=== PATIENT | male | born 1990 | race Caucasian/White ===

== ENCOUNTER 2018-07-07 08:14 | Emergency (ER) | payer SELFPAY ==
[2018-07-07] MEDS ORDERED: ONDANSETRON 4 MG/2 ML VIAL ONE (08:39)
[2018-07-07] MEDS ORDERED: NA CHLORIDE 0.9% 1,000 ML ONE (08:39)
[2018-07-07 09:11] LABS: Absolute Monocytes 0.4 K/uL (0.1-1.3); Absolute Neutrophil 6.3 K/uL (1.8-8.0); Basophils % 0.3 % (0-1.3); Eosinophils % 0.1 % (0-4.4); Hematocrit 45.6 % (39.6-49.0); Lymphocytes % 22.8 % (15.3-44.8); MCV 93.1 fL (80-100); MPV 8.7 fL (7.6-11.3); Monocytes % 4.7 % (3.3-12.3)
[2018-07-07 09:12] LABS: ALT/SGPT 22 U/L (12-78); AST/SGOT 11 U/L (15-37); Alkaline Phosphatase 71 U/L (45-117); BUN Blood Urea Nitrogen 11 mg/dL (7-18); Bicarbonate 29 mmol/L (21-32); Bilirubin Direct 0.2 mg/dL (0-0.2); Bilirubin Total 0.9 mg/dL (0.2-1.0); Glucose Level 99 mg/dL (74-106); Lipase 92 U/L (73-393); Potassium 4.3 mmol/L (3.5-5.1); Protein, Total 7.3 g/dL (6.4-8.2); Sodium Level 141 mmol/L (136-145)
--- NOTE | 2018-07-07 09:41 | RAD REPORT ---
EXAM DESCRIPTION: CT - Abdomen Pelvis W Contrast - 07/07/2018 9:33 am CLINICAL HISTORY: Vomiting, diarrhea, right upper quadrant pain COMPARISON: None. TECHNIQUE: Biphasic, helical CT imaging of the abdomen and pelvis was performed following 100 ml non -ionic IV contrast. Oral contrast was given. All CT scans are performed using dose optimization technique as appropriate and may include automated exposure control or mA/KV adjustment according to patient size. FINDINGS: No suspicious findings in the lung bases. The liver, spleen, and pancreas show no suspicious findings. Gallbladder and biliary tree are also wi thout suspicious finding. Symmetric renal function is seen with no hydronephrosis or suspicious renal mass. No dilated bowel loops or bowel wall thickening. No appendicitis. No free air, free fluid or inflamma tory stranding. No hernia, mass or bulky lymphadenopathy. The urinary bladder is without significant finding. No adrenal abnormality. No suspicious bony findings. IMPRESSION: Contrast enhanced CT abdomen and pelvis showing no significant or suspicious finding.
--- NOTE | 2018-07-07 09:46 | ER ---
Nurse's Notes [facility] Name: Silvano Rolon Age: 27 yrs Sex: Male : 1990 Arrival Date: 07/07/2018 Time: 08:17 Bed 19 Private MD: Diagnosis: Vomiting;Diarrhea, unspecified;Viral gastroenteritis Presentation: 07/07 08:27 Presenting complaint: Patient states: got over heated at work yesterday, then this iw morning he vomited X6 and had diarrhea, also has RUQ pain described as cramping/sharp pain. Transition of care: patient was not received from another setting of care. Onset of symptoms was July 07, 2018. Risk Assessment: Do you want to hurt yourself or someone else? Patient reports no desire to harm self or others. Initial Sepsis Screen: Does the patient meet any 2 criteria? No. Patient's initial sepsis screen is negative. Does the patient have a suspected source of infection? No. Patient's initial sepsis screen is negative. Care prior to arrival: None. 08:27 Method Of Arrival: Ambulatory 08:27 Acuity: BRANDY 3 iw Historical: - Allergies: 08:29 NKA; iw - Home Meds: 08:29 None [Active]; iw - PMHx: 08:29 None; iw - PSHx: 08:29 None; iw - Immunization history:: Adult Immunizations up to date. - Social history:: Smoking status: Patient uses tobacco products, smokes one-half pack cigarettes per day. - Ebola Screening: : Patient denies travel to an Ebola-affected area in the 21 days before illness onset. - Family history:: not pertinent. - Hospitalizations: : No recent hospitalization is reported. Screenin:27 Abuse screen: Denies threats or abuse. Nutritional screening: No deficits noted. tw2 Tuberculosis screening: No symptoms or risk factors identified. Fall Risk None identified. Assessment: 08:47 General: Appears in no apparent distress. slender, Behavior is calm, cooperative, tw2 appropriate for age. Pain: Complains of pain in abdomen. Neuro: Level of Consciousness is awake, alert, obeys commands, Oriented to person, place, time, situation. Cardiovascular: Denies chest pain, shortness of breath, Heart tones S1 S2 Patient's skin is warm and dry. Respiratory: Airway is patent Respiratory effort is even, unlabored, Respiratory pattern is regular, symmetrical, Breath sounds are clear bilaterally. GI: Abdomen is flat, non-distended, Bowel sounds present X 4 quads. Reports lower abdominal pain, upper abdominal pain, diarrhea, nausea, vomiting. : No signs and/or symptoms were reported regarding the genitourinary system. EENT: No signs and/or symptoms were reported regarding the EENT system. Derm: No signs and/or symptoms reported regarding the dermatologic system. Skin is intact, is healthy with good turgor, Skin temperature is warm. Musculoskeletal: Circulation, motion, and sensation intact. Capillary refill < 3 seconds, Range of motion: intact in all extremities. 09:19 Reassessment: Patient appears in no apparent distress at this time. No changes from tw2 previously documented assessment. Patient and/or family updated on plan of care and expected duration. Pain level reassessed. Patient is alert, oriented x 3, equal unlabored respirations, skin warm/dry/pink. Patient states feeling better. Patient states symptoms have improved. 10:07 Reassessment: Patient appears in no apparent distress at this time. No changes from tw2 previously documented assessment. Patient and/or family updated on plan of care and expected duration. Pain level reassessed. Patient is alert, oriented x 3, equal unlabored respirations, skin warm/dry/pink. Patient states feeling better. Patient states symptoms have improved. Vital Signs: 08:29 BP 125 / 79; Pulse 53; Resp 16; Pulse Ox 98% on R/A; Weight 68.04 kg; Height 5 ft. 8 iw in. (172.72 cm); Pain 5/10; 09:19 BP 127 / 74; Pulse 52; Resp 17; Pulse Ox 100% on R/A; tw2 09:21 Temp 98(O); tw2 10:07 BP 125 / 77; Pulse 51; Resp 17; Pulse Ox 99% on R/A; tw2 08:29 Body Mass Index 22.81 (68.04 kg, 172.72 cm) iw ED Course: 08:17 Patient arrived in ED. mr 08:24 Connor Hwang MD is Attending Physician. rn 08:27 Gilda Almaraz RN is Primary Nurse. tw2 08:28 Bed in low position. Call light in reach. Adult w/ patient. Pulse ox on. NIBP on. tw2 08:29 Triage completed. iw 08:29 Arm band placed on. iw 08:40 Inserted saline lock: 20 gauge in right forearm, using aseptic technique. Blood tw2 collected. 09:34 CT Abd/Pelvis - W/Contrast In Process Unspecified. EDMS 10:06 No provider procedures requiring assistance completed. IV discontinued, intact, tw2 bleeding controlled, No redness/swelling at site. Pressure dressing applied. Administered Medications: 08:45 Drug: Zofran 4 mg Route: IVP; Site: right forearm; tw2 09:28 Follow up: Response: No adverse reaction; Nausea is decreased tw2 08:46 Drug: NS 0.9% 1000 ml Route: IV; Rate: 1000 ml; Site: right forearm; tw2 09:27 Follow up: Response: No adverse reaction; IV Status: Completed infusion; IV Intake: tw2 1000ml Intake: 09:27 IV: 1000ml; Total: 1000ml. tw2 Outcome: 09:46 Discharge ordered by MD. rn 10:07 Discharged to home ambulatory, with friend. tw2 10:07 Condition: stable 10:07 Discharge instructions given to patient, friend, Instructed on discharge instructions, follow up and referral plans. medication usage, Demonstrated understanding of instructions, follow-up care, medications, Prescriptions given X 1. 10:08 Patient left the ED. tw2 Signatures: Dispatcher [employer] EDOR Kathy Sinha Irene, RN ORA iw Connor Hwang MD MD rn Wise, Tara, RN RN tw2 Corrections: (The following items were deleted from the chart) 10:08 09:19 Reassessment: Patient appears in no apparent distress at this time. No changes tw2 from previously documented assessment. Patient and/or family updated on plan of care and expected duration. Pain level reassessed. Patient is alert, oriented x 3, equal unlabored respirations, skin warm/dry/pink. tw2 10:08 10:07 Reassessment: Patient appears in no apparent distress at this time. No changes tw2 from previously documented assessment. Patient and/or family updated on plan of care and expected duration. Pain level reassessed. Patient is alert, oriented x 3, equal unlabored respirations, skin warm/dry/pink. tw2
--- NOTE | 2018-07-07 09:46 | EDPHYS ---
Physician Documentation [facility] Name: Silvano Rolon Age: 27 yrs Sex: Male : 1990 Arrival Date: 07/07/2018 Time: 08:17 Bed 19 Private MD: ED Physician Connor Hwang HPI: 07/07 08:54 This 27 yrs old Male presents to ER via Ambulatory with complaints of rn Vomiting, Abdominal Pain. 08:54 The patient presents to the emergency department with nausea, vomiting, diarrhea, rn abdominal pain, of the umbilical area and right lower quadrant. Onset: The symptoms/episode began/occurred yesterday. Possible causes: unknown. Associated signs and symptoms: Pertinent positives: abdominal pain, diarrhea, nausea, vomiting, Pertinent negatives: fever, GI bleeding. Severity of symptoms: At their worst the symptoms were moderate in the emergency department the symptoms are unchanged. The patient has not experienced similar symptoms in the past. The patient has not recently seen a physician. Reports co-worker with similar symptoms this past week, thought got overheated yesterday, hydrated with water and pedialyte, woke up worse today with abd cramping, nausea/vomiting/diarrhea.. Historical: - Allergies: 08:29 NKA; iw - Home Meds: 08:29 None [Active]; iw - PMHx: 08:29 None; iw - PSHx: 08:29 None; iw - Immunization history:: Adult Immunizations up to date. - Social history:: Smoking status: Patient uses tobacco products, smokes one-half pack cigarettes per day. - Ebola Screening: : Patient denies travel to an Ebola-affected area in the 21 days before illness onset. - Family history:: not pertinent. - Hospitalizations: : No recent hospitalization is reported. ROS: 08:54 Constitutional: Negative for fever, chills, and weight loss, Eyes: Negative for injury, rn pain, redness, and discharge, Neck: Negative for injury, pain, and swelling, Cardiovascular: Negative for chest pain, palpitations, and edema, Respiratory: Negative for shortness of breath, cough, wheezing, and pleuritic chest pain, Abdomen/GI: + abd pain/nausea/vomiting/diarrhea MS/Extremity: Negative for injury and deformity, Skin: Negative for injury, rash, and discoloration, Neuro: Negative for headache, weakness, numbness, tingling, and seizure. Exam: 08:54 Constitutional: This is a well developed, well nourished patient who is awake, alert, rn and in no acute distress. Head/Face: Normocephalic, atraumatic. Eyes: Pupils equal round and reactive to light, extra-ocular motions intact. Lids and lashes normal. Conjunctiva and sclera are non-icteric and not injected. Cornea within normal limits. Periorbital areas with no swelling, redness, or edema. ENT: dry MM Cardiovascular: Regular rate and rhythm with a normal S1 and S2. No gallops, murmurs, or rubs. Normal PMI, no JVD. No pulse deficits. Respiratory: Lungs have equal breath sounds bilaterally, clear to auscultation and percussion. No rales, rhonchi or wheezes noted. No increased work of breathing, no retractions or nasal flaring. Abdomen/GI: soft, + right sided abd tenderness and periumbilical tenderness, no rebound MS/ Extremity: Pulses equal, no cyanosis. Neurovascular intact. Full, normal range of motion. Equal circumference. Neuro: Awake and alert, GCS 15, oriented to person, place, time, and situation. Cranial nerves II-XII grossly intact. Motor strength 5/5 in all extremities. Sensory grossly intact. Vital Signs: 08:29 BP 125 / 79; Pulse 53; Resp 16; Pulse Ox 98% on R/A; Weight 68.04 kg; Height 5 ft. 8 iw in. (172.72 cm); Pain 5/10; 09:19 BP 127 / 74; Pulse 52; Resp 17; Pulse Ox 100% on R/A; tw2 09:21 Temp 98(O); tw2 10:07 BP 125 / 77; Pulse 51; Resp 17; Pulse Ox 99% on R/A; tw2 08:29 Body Mass Index 22.81 (68.04 kg, 172.72 cm) iw MDM: 08:24 Patient medically screened. rn 09:44 Differential diagnosis: Nonspecific abd pain, gastritis, cholecystitis, pancreatitis, rn appendicitis, diverticulitis, viral gastroenteritis, gastroenteritis. Data reviewed: vital signs, nurses notes, lab test result(s), radiologic studies, CT scan, and as a result, I will discharge patient. Counseling: I had a detailed discussion with the patient and/or guardian regarding: the historical points, exam findings, and any diagnostic results supporting the discharge/admit diagnosis, lab results, radiology results, the need for outpatient follow up, to return to the emergency department if symptoms worsen or persist or if there are any questions or concerns that arise at home. Response to treatment: the patient's symptoms have markedly improved after treatment, and as a result, I will discharge patient. Special discussion: Based on the patient's Hx, exam, and Dx evaluation, there is no indication for emergent surgery or inpatient Tx. It is understood by the patient/guardian that if the Sx's persist or worsen they need to return immediately for re-evaluation. I discussed with the patient/guardian in detail that at this point there is no indication for admission to the hospital. It is understood, however, that if the symptoms persist or worsen the patient needs to return immediately for re-evaluation. 07/07 08:32 Order name: Basic Metabolic Panel; Complete Time: 09:17 rn 07/07 08:32 Order name: CBC with Diff; Complete Time: 09:17 rn 07/07 08:32 Order name: Hepatic Function; Complete Time: 09:17 rn 07/07 08:32 Order name: Lipase; Complete Time: 09:17 rn 07/07 08:32 Order name: CT Abd/Pelvis - W/Contrast; Complete Time: 09:44 rn 07/07 08:32 Order name: IV Saline Lock; Complete Time: 08:46 rn 07/07 08:32 Order name: Labs collected and sent; Complete Time: 08:46 rn Administered Medications: 08:45 Drug: Zofran 4 mg Route: IVP; Site: right forearm; tw2 09:28 Follow up: Response: No adverse reaction; Nausea is decreased tw2 08:46 Drug: NS 0.9% 1000 ml Route: IV; Rate: 1000 ml; Site: right forearm; tw2 09:27 Follow up: Response: No adverse reaction; IV Status: Completed infusion; IV Intake: tw2 1000ml Disposition: 07/07/18 09:46 Discharged to Home. Impression: Vomiting, Diarrhea, unspecified, Viral gastroenteritis. - Condition is Stable. - Discharge Instructions: Diarrhea, Adult, Nausea and Vomiting, Adult, Viral Gastroenteritis, Adult. - Prescriptions for Zofran ODT 4 mg Oral tablet,disintegrating - place 1 tablet by TRANSLINGUAL route every 8 hours As needed; 20 tablet. - Work release form, Medication Reconciliation Form, Thank You Letter, Antibiotic Education, Prescription Opioid Use form. - Follow up: Private Physician; When: As needed; Reason: Recheck today's complaints, Re-evaluation by your physician. - Problem is new. - Symptoms have improved. Signatures: Dispatcher [employer] Leslee Brothers RN RN Connor Hwang MD MD rn Wise, Tara, RN RN tw2 Corrections: (The following items were deleted from the chart) 10:08 09:46 07/07/2018 09:46 Discharged to Home. Impression: Vomiting; Diarrhea, unspecified; tw2 Viral gastroenteritis. Condition is Stable. Forms are Medication Reconciliation Form, Thank You Letter, Antibiotic Education, Prescription Opioid Use. Follow up: Private Physician; When: As needed; Reason: Recheck today's complaints, Re-evaluation by your physician. Problem is new. Symptoms have improved. rn
== END 2018-07-07 10:08 | disposition home or self-care (01) ==
LOC: ER 08:14
DX: A08.4 Viral intestinal infection, unspecified (principal); R19.7 Diarrhea, unspecified; F17.210 Nicotine dependence, cigarettes, uncomplicated
CPT/HCPCS: 36415; 74177; 80048; 80076; 83690; 85025; 96361; 96374; 99284; J2405; J7030; Q9967

== ENCOUNTER 2021-05-15 12:16 | Emergency (ER) | payer SELFPAY ==
--- NOTE | 2021-05-15 13:45 | EDPHYS ---
Physician Documentation [facility] Name: Silvano Rolon Age: 30 yrs Sex: Male : 1990 Arrival Date: 05/15/2021 Time: 12:18 Bed DX4 Private MD: ED Physician Carlos Alberto Warren HPI: 05/15 13:19 This 30 yrs old Male presents to ER via Ambulatory with complaints of Arm kdr Pain, Shoulder Pain. 13:19 The patient or guardian complains of pain, that is acute. The complaints affect the kdr posterior aspect of right shoulder, right tricep and palmar aspect of right forearm. Context: The problem was sustained at home, resulted from lifting or pulling, a heavy object, playing sports, wrestling with his brother two weeks ago. had had numbness in his hand since but the pain is getting progressively worse.. Onset: The symptoms/episode began/occurred suddenly, 2 week(s) ago. Treatment prior to arrival includes: over the counter medications, NSAIDS. Modifying factors: The symptoms are alleviated by nothing. the symptoms are aggravated by movement, lifting weight, bending arm. Associated signs and symptoms: The patient has no apparent associated signs or symptoms. Severity of symptoms: At their worst the symptoms were mild, just prior to arrival, in the emergency department the symptoms are unchanged. The patient has not experienced similar symptoms in the past. The patient has not recently seen a physician. Historical: - Allergies: 12:53 NKA; jl7 - Home Meds: 12:53 None [Active]; jl7 - PMHx: 12:53 None; jl7 - PSHx: 12:53 None; jl7 - Immunization history:: Adult Immunizations unknown. - Social history:: Smoking status: Patient reports the use of cigarette tobacco products, smokes one-half pack cigarettes per day. ROS: 13:19 Constitutional: Negative for fever, chills, and weight loss, Eyes: Negative for injury, kdr pain, redness, and discharge, Neck: Negative for injury, pain, and swelling, Cardiovascular: Negative for chest pain, palpitations, and edema, Respiratory: Negative for shortness of breath, cough, wheezing, and pleuritic chest pain, Abdomen/GI: Negative for abdominal pain, nausea, vomiting, diarrhea, and constipation, Back: Negative for injury and pain, : Negative for injury, bleeding, discharge, and swelling, Skin: Negative for injury, rash, and discoloration, Neuro: Negative for headache, weakness, numbness, tingling, and seizure activity. 13:19 MS/extremity: Positive for pain, tingling, of the right hand and right arm. Exam: 19:23 Constitutional: This is a well developed, well nourished patient who is awake, alert, kdr and in no acute distress. Head/Face: Normocephalic, atraumatic. Eyes: Pupils equal round and reactive to light, extra-ocular motions intact. Lids and lashes normal. Conjunctiva and sclera are non-icteric and not injected. Cornea within normal limits. Periorbital areas with no swelling, redness, or edema. 19:23 Musculoskeletal/extremity: Extremities: all appear grossly normal, with no appreciated pain with palpation, grossly normal except: noted in the right subscapular area: Vital Signs: 12:51 BP 127 / 90; Pulse 78; Resp 15; Temp 97.8; Pulse Ox 99% on R/A; Weight 63.5 kg; Height jl7 5 ft. 8 in. (172.72 cm); Pain 7/10; 12:51 Body Mass Index 21.29 (63.50 kg, 172.72 cm) jl7 MDM: 13:44 Patient medically screened. kdr 19:23 Data reviewed: vital signs. Counseling: I had a detailed discussion with the patient kdr and/or guardian regarding: the historical points, exam findings, and any diagnostic results supporting the discharge/admit diagnosis, the need for outpatient follow up. Administered Medications: 13:39 Drug: Ibuprofen 800 mg Route: PO; jl7 14:01 Follow up: Response: No adverse reaction jl7 13:39 Drug: predniSONE 60 mg Route: PO; jl7 14:01 Follow up: Response: No adverse reaction jl7 13:39 Drug: Pepcid (famotidine) 20 mg Route: PO; jl7 14:01 Follow up: Response: No adverse reaction jl7 Disposition Summary: 05/15/21 13:44 Discharge Ordered Location: Home kdr Problem: an ongoing problem kdr Symptoms: have improved kdr Condition: Stable kdr Diagnosis - Unspecified mononeuropathy of right upper limb kdr - Radiculopathy, cervical region kdr Followup: kdr - With: Private Physician - When: 2 - 3 days - Reason: If symptoms return, Further diagnostic work-up, Recheck today's complaints, Continuance of care, Re-evaluation by your physician Discharge Instructions: - Discharge Summary Sheet kdr - Cervical Radiculopathy kdr - Neuropathic Pain kdr - Pinched Nerve kdr Forms: - Medication Reconciliation Form kdr - Thank You Letter kdr Prescriptions: - Ibuprofen 600 mg Oral Tablet - take 1 tablet by ORAL route every 6 hours As needed take with food; 30 tablet; kdr Refills: 0, Product Selection Permitted - Medrol (Prabhjot) 4 mg Oral Tablets, Dose Pack - take 1 tablet by ORAL route as directed - follow package instructions; 1 kdr packet; Refills: 0, Product Selection Permitted - Pepcid 20 mg Oral Tablet - take 1 tablet by ORAL route once daily for 10 days; 10 tablet; Refills: 0, kdr Product Selection Permitted Signatures: Carlos Alberto Warren MD MD kdr Lashawn Oviedo RN RN jl7
--- NOTE | 2021-05-15 13:45 | ER ---
Nurse's Notes [facility] Name: Silvano Rolon Age: 30 yrs Sex: Male : 1990 Arrival Date: 05/15/2021 Time: 12:18 Bed DX4 Private MD: Diagnosis: Unspecified mononeuropathy of right upper limb;Radiculopathy, cervical region Presentation: 05/15 12:51 Chief complaint: Patient states: Wrestling with my brother 2.5 weeks ago and since then jl7 my right arm is hurting and my fingers feel numb. Coronavirus screen: Client denies travel out of the [place] in the last 14 days. At this time, the client does not indicate any symptoms associated with coronavirus-19. Ebola Screen: No symptoms or risks identified at this time. Initial Sepsis Screen: Does the patient meet any 2 criteria? No. Patient's initial sepsis screen is negative. Does the patient have a suspected source of infection? No. Patient's initial sepsis screen is negative. Risk Assessment: Do you want to hurt yourself or someone else? Patient reports no desire to harm self or others. Onset of symptoms was April 28, 2021. Care prior to arrival: None. 12:51 Method Of Arrival: Ambulatory 7 12:51 Acuity: BRANDY 4 jl7 Triage Assessment: 12:51 General: Appears in no apparent distress. uncomfortable, Behavior is calm, cooperative, jl7 appropriate for age. Pain: Complains of pain in posterior aspect of right shoulder Pain currently is 7 out of 10 on a pain scale. Neuro: Level of Consciousness is awake, alert, obeys commands, Oriented to person, place, time, situation. Cardiovascular: Patient's skin is warm and dry. Respiratory: Airway is patent Respiratory effort is even, unlabored, Respiratory pattern is regular, symmetrical. Derm: Skin is pink, warm \T\ dry. Musculoskeletal: Range of motion: intact in all extremities, Swelling absent. Historical: - Allergies: 12:53 NKA; jl7 - Home Meds: 12:53 None [Active]; jl7 - PMHx: 12:53 None; jl7 - PSHx: 12:53 None; jl7 - Immunization history:: Adult Immunizations unknown. - Social history:: Smoking status: Patient reports the use of cigarette tobacco products, smokes one-half pack cigarettes per day. Screenin:12 Abuse screen: Denies threats or abuse. Denies injuries from another. Nutritional ss screening: No deficits noted. Tuberculosis screening: Never had TB. Fall Risk None identified. Assessment: 12:51 General: See triage assessment. jl7 13:40 Reassessment: Patient appears in no apparent distress at this time. No changes from jl7 previously documented assessment. Patient and/or family updated on plan of care and expected duration. Pain level reassessed. Patient is alert, oriented x 3, equal unlabored respirations, skin warm/dry/pink. Vital Signs: 12:51 BP 127 / 90; Pulse 78; Resp 15; Temp 97.8; Pulse Ox 99% on R/A; Weight 63.5 kg; Height jl7 5 ft. 8 in. (172.72 cm); Pain 7/10; 12:51 Body Mass Index 21.29 (63.50 kg, 172.72 cm) jl7 ED Course: 12:18 Patient arrived in ED. am2 12:53 Triage completed. jl7 12:53 Arm band placed on right wrist. Patient placed in waiting room, Patient notified of jl7 wait time. 13:12 Carlos Alberto Warren MD is Attending Physician. kdr 13:12 Patient has correct armband on for positive identification. Bed in low position. Call ss light in reach. 13:39 Lashawn Oviedo, RN is Primary Nurse. jl7 13:40 No provider procedures requiring assistance completed. Patient did not have IV access jl7 during this emergency room visit. Administered Medications: 13:39 Drug: Ibuprofen 800 mg Route: PO; jl7 14:01 Follow up: Response: No adverse reaction jl7 13:39 Drug: predniSONE 60 mg Route: PO; jl7 14:01 Follow up: Response: No adverse reaction jl7 13:39 Drug: Pepcid (famotidine) 20 mg Route: PO; jl7 14:01 Follow up: Response: No adverse reaction jl7 Outcome: 13:44 Discharge ordered by . kdr 13:59 Discharged to home ambulatory. jl7 13:59 Condition: stable 13:59 Discharge instructions given to patient, family, Instructed on discharge instructions, follow up and referral plans. medication usage, Demonstrated understanding of instructions, follow-up care, medications, Prescriptions given X 3. 14:00 Patient left the ED. jl7 Signatures: Carlos Alberto Warren MD MD kdr Smirch, Shelby, RN RN Lashawn Jeffries RN RN jl7 Ida Youngblood
[2021-05-15] MEDS ORDERED: predniSONE 20 MG TAB ONE (13:56)
[2021-05-15] MEDS ORDERED: IBUPROFEN 400 MG TAB ONE (13:56)
[2021-05-15] MEDS ORDERED: FAMOTIDINE 20 MG TAB ONE (13:57)
[2021-05-15 14:06] VITALS: BP 127/90; TEMP 97.8; O2SAT 99
== END 2021-05-15 14:00 | disposition home or self-care (01) ==
LOC: ER 12:16
DX: M54.12 Radiculopathy, cervical region (principal); F17.210 Nicotine dependence, cigarettes, uncomplicated
CPT/HCPCS: J7512

== ENCOUNTER 2022-03-27 15:14 | Emergency (ER) | payer SELFPAY ==
[2022-03-27 15:52] LABS: Absolute Lymphocytes (CBC) 1.9 K/uL (0.7-4.9); Hematocrit 41.3 % (39.6-49.0); Lymphocytes % 23.3 % (15.3-44.8); MPV 7.3 fL (7.6-11.3); RBC Red Blood Cell Count 4.48 M/uL (4.33-5.43)
[2022-03-27 16:02] LABS: Potassium 3.8 mmol/L (3.5-5.1)
--- NOTE | 2022-03-27 16:09 | RAD REPORT ---
EXAM DESCRIPTION: [place] Single View03/27/2022 4:01 pm CLINICAL HISTORY: Chest pain COMPARISON: none FINDINGS: The lungs appear clear of acute infiltrate. The heart is normal size IMPRESSION: No acute abnormalities displayed
--- NOTE | 2022-03-27 16:30 | ER ---
Nurse's Notes [facility] Name: Silvano Rolon Age: 31 yrs Sex: Male : 1990 Arrival Date: 03/27/2022 Time: 15:16 Bed 8 Private MD: Diagnosis: Chest pain, unspecified Presentation: 03/27 15:17 Chief complaint: Chief complaint: Patient states: l side chest pain after running from [facility] police. reports no drug use. 15:17 Chief complaint:. Coronavirus screen: Vaccine status: Patient reports being [facility] unvaccinated. Client denies travel out of the [place] in the last 14 days. Ebola Screen: Patient negative for fever greater than or equal to 101.5 degrees Fahrenheit, and additional compatible Ebola Virus Disease symptoms Patient denies exposure to infectious person. Patient denies travel to an Ebola-affected area in the 21 days before illness onset. Initial Sepsis Screen: Does the patient meet any 2 criteria? No. Patient's initial sepsis screen is negative. Does the patient have a suspected source of infection? No. Patient's initial sepsis screen is negative. Risk Assessment: Do you want to hurt yourself or someone else? Patient reports no desire to harm self or others. Onset of symptoms was March 27, 2022. 15:17 Method Of Arrival: EMS: [facility] 15:17 Acuity: BRANDY 3 [facility] Triage Assessment: 15:21 General: Appears in no apparent distress. Behavior is calm, cooperative. Pain: [facility] Complains of pain in anterior aspect of left upper chest and left breast Pain currently is 6 out of 10 on a pain scale. Quality of pain is described as pressure, sharp, Pain began suddenly, Is continuous, Aggravated by increased activity, repositioning, palpation. Cardiovascular: Reports chest pain, Capillary refill < 3 seconds JVD is absent Pulses are all present. Rhythm is sinus rhythm. Historical: - Allergies: 15:20 NKA; [facility] - Home Meds: 15:20 None [Active]; [facility] - Immunization history:: Adult Immunizations unknown. - Social history:: Smoking status: Patient denies any tobacco usage or history of. Screenin:23 Abuse screen: Denies threats or abuse. Nutritional screening: No deficits noted. [facility] Tuberculosis screening: No symptoms or risk factors identified. Fall Risk None identified. Assessment: 15:22 General: Appears in no apparent distress. Behavior is calm, cooperative, see triage jh6 note. Neuro: No deficits noted. Cardiovascular: Reports chest pain. Respiratory: No deficits noted. GI: No deficits noted. 16:30 Reassessment: No changes from previously documented assessment. Patient is alert, jh6 oriented x 3, equal unlabored respirations, skin warm/dry/pink. 16:30 Pain: Complains of pain in anterior aspect of left upper chest and left breast Pain jh6 currently is 4 out of 10 on a pain scale. Quality of pain is described as sharp, Pain began suddenly. Vital Signs: 15:17 BP 133 / 99; Pulse 108; Resp 20; Pulse Ox 98% ; Weight 72.57 kg; Height 5 ft. 8 in. jh6 (172.72 cm); Pain 6/10; 16:30 BP 142 / 89; Pulse 93; Resp 18; Temp 98.4; Pulse Ox 100% ; jh6 15:17 Body Mass Index 24.33 (72.57 kg, 172.72 cm) 6 ED Course: 15:16 Patient arrived in ED. jh6 15:16 Janina Wise, ORA is Primary Nurse. jh6 15:18 Franco Anaya PA is PHCP. cp 15:18 Lei Bey DO is Attending Physician. cp 15:20 Triage completed. jh6 15:22 Arm band placed on left wrist. Patient placed in an exam room, on a stretcher, on 6 rn cardiac, on pulse oximetry. 15:23 Bed in low position. Call light in reach. Side rails up X 1. Adult w/ patient. jh6 15:47 EKG done, by ED staff, reviewed by Lei Bey DO. Initial lab(s) drawn, by ED staff, mh5 sent to lab. Inserted. 16:03 XRAY Chest (1 view) In Process Unspecified. EDMS 16:45 No provider procedures requiring assistance completed. jh6 16:45 IV discontinued, intact, bleeding controlled, No redness/swelling at site. Pressure jh6 dressing applied. Administered Medications: No medications were administered Medication: 16:45 VIS not applicable for this client. 6 Outcome: 16:29 Discharge ordered by . ms3 16:45 Discharged to Law Enforcement jh6 16:45 Condition: stable 16:45 Discharge instructions given to patient, police. 16:54 Patient left the ED. jh6 Signatures: Dispatcher [employer] EDMS Franco Anaya PA PA cp Martinez, Maria [facility] Lei Bey DO DO ny3 Janina Wise RN RN jh6 Corrections: (The following items were deleted from the chart) 15:20 15:17 Chief complaint: [place] [id number]
--- NOTE | 2022-03-27 16:30 | EDPHYS ---
Physician Documentation [facility] Name: Silvano Rolon Age: 31 yrs Sex: Male : 1990 Arrival Date: 03/27/2022 Time: 15:16 Bed 8 Private MD: ED Physician Lei Bey HPI: 03/27 15:20 This 31 yrs old Male presents to ER via EMS with complaints of chest pain. ms3 15:20 The patient or guardian reports chest pain that is located primarily in the anterior ms3 chest wall, left. The pain does not radiate. Associated signs and symptoms: Pertinent negatives: None. The chest pain is described as sharp. Duration: The patient or guardian reports a single episode, that lasted 30 minute(s). Modifying factors: The symptoms are alleviated by nothing. Severity of pain: At its worst the pain was moderate in the emergency department the pain is unchanged. EMS care prior to arrival includes: Toradol. Historical: - Allergies: 15:20 NKA; [facility] - Home Meds: 15:20 None [Active]; [facility] - Immunization history:: Adult Immunizations unknown. - Social history:: Smoking status: Patient denies any tobacco usage or history of. ROS: 15:20 Constitutional: Negative for fever, and chills. Neck: Negative for injury, pain, and ms3 swelling, Respiratory: Negative for shortness of breath, cough, wheezing, and pleuritic chest pain, Abdomen/GI: Negative for abdominal pain, nausea, vomiting, diarrhea, and constipation, MS/Extremity: Negative for injury and deformity, Skin: Negative for injury, rash, and discoloration. 15:20 Cardiovascular: Positive for chest pain, of the chest. 15:20 All other systems are negative. Exam: 15:20 Constitutional: This is a well developed, well nourished patient who is awake, alert, ms3 and in no acute distress. Head/Face: Normocephalic, atraumatic. Neck: Trachea midline, no cervical lymphadenopathy. Supple, full range of motion without nuchal rigidity, or vertebral point tenderness. No Meningismus. Abdomen/GI: Soft, non-tender, with normal bowel sounds. No distension or tympany. No guarding or rebound. No evidence of tenderness throughout. Skin: Warm, dry with normal turgor. Normal color with no rashes, no lesions, and no evidence of cellulitis. 15:20 Psych: Awake, alert, with orientation to person, place and time. Behavior, mood, and affect are within normal limits. 15:20 Chest/axilla: Palpation: tenderness, that is moderate, of the anterior aspect of left upper chest. 15:23 ECG was reviewed by the Attending Physician. ms3 Vital Signs: 15:17 BP 133 / 99; Pulse 108; Resp 20; Pulse Ox 98% ; Weight 72.57 kg; Height 5 ft. 8 in. jh6 (172.72 cm); Pain 6/10; 16:30 BP 142 / 89; Pulse 93; Resp 18; Temp 98.4; Pulse Ox 100% ; jh6 15:17 Body Mass Index 24.33 (72.57 kg, 172.72 cm) jh6 MDM: 15:20 Differential diagnosis: abnormal EKG, acute myocardial infarction, acute pericarditis, ms3 anxiety, coronary artery disease chest wall pain, pulmonary embolus. 15:28 Patient medically screened. ms3 16:29 HEART Score: History: Slightly Suspicious (0), ECG: Normal (0), Age: < or = 45 years ms3 (0), Risk Factors: No Risk Factors Known (0), Troponin: < or = 1 x Normal Limit (0), Total Score = 0. Data reviewed: vital signs, nurses notes, lab test result(s), EKG, radiologic studies. Data interpreted: front desk monitor: rate is 95 beats/min, rhythm is normal sinus rhythm, with no ectopy, Interpretation: normal rate, normal rhythm. Test interpretation: by ED physician or midlevel provider: ECG. Counseling: I had a detailed discussion with the patient and/or guardian regarding: the historical points, exam findings, and any diagnostic results supporting the discharge/admit diagnosis, lab results, radiology results, the need for outpatient follow up, to return to the emergency department if symptoms worsen or persist or if there are any questions or concerns that arise at home. ED course: Discussed labs, chest x-ray, physical exam findings with patient. Patient to follow-up with Dr Zaragoza in 2-3 days. Patient understands and agrees with plan. All questions were answered. Return precautions discussed include worsening symptoms, or any other concerns. On reevaluation patient is alert and oriented x4, in no apparent distress, nontoxic-appearing, speaking full sentences, ambulatory in emergency department.. 03/27 15:20 Order name: Basic Metabolic Panel; Complete Time: 16:25 ms3 03/27 15:20 Order name: CBC with Diff; Complete Time: 16:25 ms3 03/27 15:20 Order name: D-Dimer; Complete Time: 16:25 ms3 03/27 15:20 Order name: Troponin HS; Complete Time: 16:25 ms3 03/27 15:20 Order name: XRAY Chest (1 view); Complete Time: 16:25 ms3 03/27 15:20 Order name: EKG; Complete Time: 15:21 ms3 03/27 15:20 Order name: Cardiac monitoring; Complete Time: 15:38 ms3 03/27 15:20 Order name: EKG - Nurse/Tech; Complete Time: 15:38 ms3 03/27 15:20 Order name: IV Saline Lock; Complete Time: 15:38 ms3 03/27 15:20 Order name: Labs collected and sent; Complete Time: 15:38 ms3 03/27 15:20 Order name: O2 Per Protocol; Complete Time: 15:38 ms3 03/27 15:20 Order name: O2 Sat Monitoring; Complete Time: 15:38 ms3 EC:23 Rate is 99 beats/min. Rhythm is regular. QRS [place] is Normal. NV interval is normal. QT ms3 interval is normal. Clinical impression: Normal ECG. Interpreted by me. Administered Medications: No medications were administered Disposition Summary: 03/27/22 16:29 Discharge Ordered Location: Home ms3 Condition: Stable ms3 Diagnosis - Chest pain, unspecified ms3 Discharge Instructions: - Discharge Summary Sheet ms3 - Nonspecific Chest Pain, Adult ms3 Forms: - Medication Reconciliation Form ms3 - Thank You Letter ms3 - Antibiotic Education ms3 - Prescription Opioid Use ms3 Signatures: Dispatcher [employer] Lei Martins DO DO ms3 Janina Wise, RN RN jh6
[2022-03-27 18:34] VITALS: BP 142/89; TEMP 98.4; O2SAT 100
--- NOTE | 2022-03-29 14:55 | EKG ---
Test Date: 2022-03-27 Test Time: 15:23:56 Perinatology Physician: PAYAM MEASUREMENT RESULTS: Intervals: Rate: 99 DE: 100 QRSD: 92 QT: 376 QTc: 482 [place]: P: 77 DE: 100 QRS: 78 T: 80 INTERPRETIVE STATEMENTS: Sinus rhythm with short DE Prolonged QT Abnormal ECG Compared to ECG 06/27/2010 15:12:09 Prolonged QT interval now present Sinus arrhythmia no longer present Electronically Signed On 03-29-22 14:53:49 CDT by Ulises Zaragoza
== END 2022-03-27 16:54 | disposition home or self-care (01) ==
LOC: ER 15:14
DX: R07.9 Chest pain, unspecified (principal)
CPT/HCPCS: 36415; 71045; 80048; 84484; 85025; 85379; 93005; 99284